=== PATIENT | male | born 1955 | race Caucasian/White ===

== ENCOUNTER 2018-12-09 21:07 | Emergency (ER) | payer MEDICARE ==
[~2018-12-09] VITALS: Ht 180.3 cm; Wt 111.1 kg
== END 2018-12-09 23:05 | disposition home or self-care (01) ==
LOC: ER 21:07
DX: M25.552 Pain in left hip (principal); Z88.8 Allergy status to other drugs, medicaments and biological substances; I10 Essential (primary) hypertension; Z87.891 Personal history of nicotine dependence
CPT/HCPCS: 73502; 99283-25